=== PATIENT | female | born 1970 | race Caucasian/White ===

== ENCOUNTER 2016-08-30 12:28 | Emergency (ER) | payer OTHER ==
[2016-08-30 12:38] VITALS: BMI 26.6
[2016-08-30] MEDS ORDERED: METOCLOPRAMIDE HCL INJECTION 10 MG/2 ML VIAL IVPB ONE (14:13)
--- NOTE | 2016-08-30 14:13 | PDOC ---
History of Present Illness <Sandra Yanes - Last Filed: 08/30/16 15:26> - General History Source: Patient Exam Limitations: No Limitations - History of Present Illness Initial Comments: 08/30/16 14:29 The patient is a 46 year old female, with a significant past medical history of migraines and HTN, who presents to the emergency department with headache and generalized weakness onset today. She describes her headache as ranging from mild to moderate, without radiation. She notes that the pain is exacerbated when she makes sudden movements or stands up. She reports that she took a Tylenol today with minimal relief of her symptoms. She states that she has been worked up for migraines in the [place] for the past 3 years, which is when the headaches started. The patient denies chest pain, shortness of breath, and dizziness. Denies fever , chills, nausea, vomit, diarrhea and constipation. Allergies: None Past surgical history: None reported Social history: No alcohol, tobacco or drug use reported <Michael Muñoz - Last Filed: 08/30/16 15:32> - General Chief Complaint: Migraine Headache Stated Complaint: HEADACHE Time Seen by Provider: 08/30/16 13:07 Past History - Past Medical History HTN: Yes Other medical history: migraines - Psycho/Social/Smoking Cessation Hx Anxiety: No Suicidal Ideation: No Smoking History: Never smoked Have you smoked in the past 12 months: No Information on smoking cessation initiated: No Hx Alcohol Use: No Drug/Substance Use Hx: No Substance Use Type: None <Sandra Yanes - Last Filed: 08/30/16 15:26> <Michael Muñoz - Last Filed: 08/30/16 15:32> - Past Medical History Allergies/Adverse Reactions: Allergies Allergy/AdvReac Type Severity Reaction Status Date / Time No Known Allergies Allergy Verified 08/30/16 12:34 Home Medications: Ambulatory Orders Butalb/Acetaminophen/Caffeine [Fioricet 50-300-40 mg Capsule] 1 each PO BID PRN #20 capsule 08/30/16 Review of Systems - Review of Systems Able to Perform ROS?: Yes Comments:: 08/30/16 14:30 GENERAL/CONSTITUTIONAL: (+) Generalized weakness. No fever or chills. HEAD, EYES, EARS, NOSE AND THROAT: No change in vision. No ear pain or discharge. No sore throat. CARDIOVASCULAR: No chest pain or shortness of breath RESPIRATORY: No cough, wheezing, or hemoptysis. GASTROINTESTINAL: No nausea, vomiting, diarrhea or constipation. GENITOURINARY: No dysuria, frequency, or change in urination. MUSCULOSKELETAL: No joint or muscle swelling or pain. No neck or back pain. SKIN: No rash NEUROLOGIC: (+) Headache. No vertigo, loss of consciousness, or change in strength/sensation. ENDOCRINE: No increased thirst. No abnormal weight change HEMATOLOGIC/LYMPHATIC: No anemia, easy bleeding, or history of blood clots. ALLERGIC/IMMUNOLOGIC: No hives or skin allergy. <Michael Muñoz - Last Filed: 08/30/16 15:32> *Physical Exam - Vital Signs Last Vital Signs Temp Pulse Resp BP Pulse Ox 98.2 F 71 18 103/72 100 08/30/16 12:34 08/30/16 12:34 08/30/16 12:34 08/30/16 12:34 08/30/16 12:34 <Sandra Yanes - Last Filed: 08/30/16 15:26> - Vital Signs Last Vital Signs Temp Pulse Resp BP Pulse Ox 98.2 F 71 18 103/72 100 08/30/16 12:34 08/30/16 12:34 08/30/16 12:34 08/30/16 12:34 08/30/16 12:34 - Physical Exam Comments: 08/30/16 14:30 GENERAL: Awake, alert, and fully oriented, in no acute distress HEAD: No signs of trauma, normocephalic, atraumatic EYES: PERRLA, EOMI, sclera anicteric, conjunctiva clear ENT: Auricles normal inspection, hearing grossly normal, nares patent, oropharynx clear without exudates. Moist mucosa NECK: Normal ROM, supple, no lymphadenopathy, JVD, or masses LUNGS: No distress, speaks full sentences, clear to auscultation bilaterally HEART: Regular rate and rhythm, normal S1 and S2, no murmurs, rubs or gallops, peripheral pulses normal and equal bilaterally. ABDOMEN: Soft, nontender, normoactive bowel sounds. No guarding, no rebound. No masses EXTREMITIES: Normal inspection, Normal range of motion, no edema. No clubbing or cyanosis. NEUROLOGICAL: Cranial nerves II through XII grossly intact. Normal speech, normal gait, no focal sensorimotor deficits SKIN: Warm, Dry, normal turgor, no rashes or lesions noted. <Michael Muñoz - Last Filed: 08/30/16 15:32> Medical Decision Making - Medical Decision Making 08/30/16 15:20 46-year-old female long-standing history of migraines presents today because she 's had a migraine for several days. She has no fever, chills, visual changes, vomiting She is afebrile, normotensive sHe has no gross focal neural deficits She is also concerned about her last mammography that stated she need to have additional imaging studies. She has had breast exams in June and December 2015 and then again this month. Patient was told that she was to follow the directions and see Dr. lemos to arrange for these further tests Patient received IV Benadryl and Reglan and now states she wants to go home Impression migraine <Sandra Yanes - Last Filed: 08/30/16 15:26> *DC/Admit/Observation/Transfer <Sandra Yanes - Last Filed: 08/30/16 15:26> - Attestations Scribe Attestion: 08/30/16 14:30 Documentation prepared by Michael Muñoz, acting as medical and scientific illustrator for Sandra Yanes MD <Michael Muñoz - Last Filed: 08/30/16 15:32> Diagnosis at time of Disposition: Migraine Qualifiers: Migraine type: chronic without aura Status migrainosus presence: without status migrainosus Intractability: not intractable Qualified Code(s): G43.709 - Chronic migraine without aura, not intractable, without status migrainosus - Discharge Dispostion Disposition: HOME Condition at time of disposition: Stable - Prescriptions Prescriptions: Butalb/Acetaminophen/Caffeine [Fioricet 50-300-40 mg Capsule] 1 each PO BID PRN #20 capsule PRN Reason: Headache - Referrals Referrals: Hardeep Parikh MD [Primary Care Provider] - - Patient Instructions Printed Discharge Instructions: DI for Migraine Additional Instructions: please follow up with your regular physician
[2016-08-30] MEDS ORDERED: SODIUM CHLORIDE 1,000 ML IV STA (14:14)
[2016-08-30] MEDS ORDERED: METOCLOPRAMIDE HCL INJECTION 10 MG/2 ML VIAL ONE (14:29)
[2016-08-30 15:56] VITALS: BP 110/77; PULSE 69; TEMP 98
== END 2016-08-30 15:56 | disposition home or self-care (01) ==
LOC: JER 12:28
PROC: 3E033GC Introduction of Other Therapeutic Substance into Peripheral Vein, Percutaneous Approach (ICD-10-PCS; principal; 2016-08-30)
PROC: 3E033GC Introduction of Other Therapeutic Substance into Peripheral Vein, Percutaneous Approach (ICD-10-PCS; 2016-08-30)
DX: G43.709 Chronic migraine without aura, not intractable, without status migrainosus (principal); I10 Essential (primary) hypertension
CPT/HCPCS: 96374; 96375; 99283-25

== ENCOUNTER 2021-11-08 21:04 | Emergency (ER) | payer OTHER ==
[2021-11-08 21:14] VITALS: RESP 19; BMI 31.1
[2021-11-08] MEDS ORDERED: ACETAMINOPHEN 500 MG TABLET (FP) PO ONE (21:18)
[2021-11-08] MEDS ORDERED: IBUPROFEN 600 MG TABLET (FP) PO ONE (21:39)
[2021-11-08 22:21] VITALS: BP 124/70; PULSE 86; TEMP 100.5
== END 2021-11-08 22:22 | disposition home or self-care (01) ==
LOC: JER 21:04
DX: J02.0 Streptococcal pharyngitis (principal); R50.9 Fever, unspecified
CPT/HCPCS: 0241U-QW; 87651; 99283-25

== ENCOUNTER 2022-01-19 11:08 | Emergency (ER) | payer OTHER ==
[2022-01-19 12:03] VITALS: BP 134/85; PULSE 88; RESP 18; TEMP 98.5; BMI 30.1
[2022-01-19] MEDS ORDERED: METHOCARBAMOL 500 MG TABLET PO ONE (13:17)
[2022-01-19] MEDS ORDERED: LIDOCAINE 5% TOPICAL PATCH TP ONE (13:17)
[2022-01-19] MEDS ORDERED: ACETAMINOPHEN 325 MG TABLET (FP) PO ONE (13:17)
[2022-01-19] MEDS ORDERED: ACETAMINOPHEN 325 MG TABLET (FP) ONE (13:19)
[2022-01-19] MEDS ORDERED: METHOCARBAMOL 500 MG TABLET ONE (13:19)
[2022-01-19] MEDS ORDERED: LIDOCAINE 5% TOPICAL PATCH ONE (13:22)
[2022-01-19 14:17] LABS: URINE APPEARANCE CLEAR; URINE BILIRUBIN NEGATIVE (NEGATIVE); URINE COLOR YELLOW; URINE GLUCOSE (UA) NEGATIVE (NEGATIVE); URINE KETONE TRACE (NEGATIVE); URINE LEUK ESTERASE NEGATIVE (NEGATIVE); URINE NITRITE NEGATIVE (NEGATIVE); URINE PROTEIN NEGATIVE (NEGATIVE); URINE UROBILINOGEN 0.2 mg/dL (0.2-1.0)
[2022-01-19] MEDS ORDERED: LIDOCAINE PATCH REMOVAL MC ONE (22:00)
== END 2022-01-19 14:46 | disposition home or self-care (01) ==
LOC: JERFT 11:08
DX: M54.42 Lumbago with sciatica, left side (principal)
CPT/HCPCS: 72100-TC-FY; 81003; 99284-25

== ENCOUNTER → 2023-02-10 | Day surgery (SDC) | payer OTHER | END | disposition home or self-care (01) | LOC: JRADUS-SUR 09:42 | PROVIDERS: ATTEND Surgery | PROC: 0H9U3ZX Drainage of Left Breast, Percutaneous Approach, Diagnostic (ICD-10-PCS; principal; 2023-02-10) | DX: N60.12 Diffuse cystic mastopathy of left breast (principal) | CPT/HCPCS: 19083; 87899; A4648 ==